=== PATIENT | female | born 1960 | race Caucasian/White ===

== ENCOUNTER → 2017-11-04 | Day surgery (SDC) | payer OTHER ==
--- NOTE | 2017-10-27 08:29 | TH ---
cc: Kelechi Carr MD DATE: 11/04/2017 PROCEDURE TO BE PERFORMED: Revision mastopexy on the right breast. HISTORY OF PRESENT ILLNESS: This is a 55-year-old female who underwent a mastectomy in the past of the left breast and further matching augmentation mastopexy on the right breast. The patient has developed some deformity and asymmetry in the right breast, the reason for which we are planning to do so. Currently, the patient has an SRM-345 device in the right breast. PAST MEDICAL HISTORY: Otherwise remarkable for degenerative disk disease. MEDICATIONS: 1. Metoprolol. 2. Toprol. 3. Xanax. REVIEW OF SYSTEMS: Otherwise unremarkable. PHYSICAL EXAM CONSTITUTIONAL: General appearance. The patient is a well-developed 55-year-old female in no acute distress. Body habitus is within normal limits. There appear to be no deformities. Appears to have attention to grooming. HEENT: Eyes Conjunctivae and lids are within normal anatomical limits. The pupils are reactive to light and accommodation, size, and symmetry. There is no evidence of exudate, hemorrhage, or vessel change. Ears, mouth, nose, and throat The external inspection of the ears and nose fails to demonstrate any pathology, scars, lesions, or masses. Nasal mucosa, septum, and turbinates appear to be well hydrated as well as the lips and gums. No evidence of masses in the hypopharynx or submental area. RESPIRATORY: The patient shows no evidence of intercostal refractions. Otherwise, lungs are clear to auscultation without any abnormal sounds or rubs. CARDIOVASCULAR: The patient has a normal heart rate and rhythm. There is no evidence of noticed carotid bruits. Femoral pulses and pedal pulses in extremities are also within normal limits. GASTROINTESTINAL AND ABDOMEN: Soft with no evidence of masses or tenderness. Unable to palpate the liver or spleen. No evidence of hernia. MUSCULOSKELETAL: Appears to be reasonable range of motion on the head, neck, spine, ribs, pelvis, right upper extremity, left upper extremity, right lower extremity, and left lower extremity. The muscle strength and tone appears to be equal and within accepted limits. SKIN: There is no rashes, lesions, or ulcers on the trunk, back, and extremities. NEUROLOGICAL: Examination is grossly normal. PSYCHIATRIC: The patient appears to have good orientation of time, place, and person. Does not appear to have any mood effects of depression, anxiety, or agitation. BREASTS: On examination well-healed mastectomy and mastopexy incisions are located in the left and right breasts respectively. There is significant asymmetry when compared to the left breast. The inframammary fold is definitely lower on the right side when compared to the left side. RECOMMENDATIONS: My recommendation is revision mastopexy with inferior lateral capsulorrhaphies. MD SARA Valentine/IVETTE , 03:29 PM , 04:15 PM
[~2017-11-04] MED LIST: ACETAMINOPHEN 1000 MG/100 ML 100 ML IV ONE; ACETAMINOPHEN/HYDROcodone 325 MG/5 MG TAB ONE; ALPR0.5T99 PO; BACITRACIN IM FOR SOLN 50,000 UNIT VIAL ONE; BUPIVACAINE/EPINEPHRINE 0.25% PF 10 ML VIAL ONE; CYMB60CA PO; GENTAMICIN SULFATE 80 MG/2 ML VIAL ONE; KETOROLAC TROMETHAMINE 60 MG/2 ML (IM) VIAL IM ONE; LIDOCAINE 1%/EPINEPHrine 1:100,000 SOLN 30 ML VIAL ONE; LORT5TAB PO; MEPERIDINE HCL 25 MG/ML VIAL ONE; MIDAZOLAM HCL 2 MG/2 ML VIAL ONE; MORPHINE SULFATE 4 MG/ML INJ ONE; ONDANSETRON HCL 4 MG/2 ML VIAL IV PUSH ONE; PROPOFOL 200 MG/20 ML AMP IV ONE; SOMA350T PO; TOPR25TA2 PO; TYLE3 PO; ceFAZolin INJ 1,000 MG VIAL ONE
--- NOTE | 2017-11-04 09:01 | TN ---
cc: Kelechi Carr MD DATE OF SURGERY: 11/04/2017 PREOPERATIVE DIAGNOSIS: Status post left mastectomy with deformity of the right breast. POSTOPERATIVE DIAGNOSIS: Status post left mastectomy with deformity of the right breast. PROCEDURE PERFORMED: Right breast revision reconstruction, revision matching mastopexy. SURGEON: Kelechi Carr MD. ANESTHESIA: LMA, general. ESTIMATED BLOOD LOSS: Minimal. SPECIMENS: None. PROCEDURE IN DETAIL: The patient was properly consented, marked and anesthetized. The skin was sterilized with Betadine solution and sterile draping applied. Through the vertical infraareolar incision on the right breast, I approached the capsule. The implant was removed without any difficulties. Irrigation with antibiotic solution took place. Lateral and inferior capsulorrhaphies were done with multiple 0 silks in a running locking fashion. After that, I proceeded to perform superomedial capsulotomies to ease the tension of the breast. The implant was introduced after isolating the nipple areolar complex from the beginning and the skin without difficulties and the wound was closed in multiple fashions. The patient was sat up. An excess of fatty tissue was noted down to the base. This was liposuctioned without any difficulty. Approximately 40-50 mL was removed. Then, a tailor tack technique was utilized to assess the excess of skin. This was properly marked, deepithelialized and the wound was closed with multiple 2-0 Monocryl suture layers in the dermis and subcutaneous. Prineo Dermabond was utilized for the skin as well as absorbent dressings. Overall, the patient tolerated the procedure well and was awakened and extubated in the operating room and transferred back to the postanesthesia care unit in stable condition. No complications were appreciated. The patient tolerated the procedure fairly well. Kelechi Carr MD SMEleno/CARMEN , 08:44 AM , 08:59 AM SHAKIRA
== END | disposition home or self-care (01) ==
LOC: ESDC 06:19
PROVIDERS: ATTEND Plastic Surgery
DX: Z85.3 Personal history of malignant neoplasm of breast (principal); N64.89 Other specified disorders of breast; Z90.12 Acquired absence of left breast and nipple
CPT/HCPCS: 00402; 19316; 19380; J0131; J0690; J1580; J1885; J2175; J2250; J2270; J2405; J3010